=== PATIENT | female | born 1985 | race Caucasian/White ===

== ENCOUNTER 2020-11-16 11:16 | Emergency (ER) | payer OTHER, SELFPAY ==
[2020-11-16 12:55] LABS: BUN/CREAT RATIO (CALC) 24.4 RATIO; CREATININE 0.78 mg/dL (0.51-0.95); EOSINOPHIL 1.6 % (0-5); HCT 43.3 % (37.0-47.0); HGB 13.7 g/dl (12.5-16.0); LYMPHOCYTE 22.6 % (15-48); MCH 29.8 pg (25.0-31.0); MCHC 31.6 g/dL (32.0-36.0); MCV 94.1 fL (78.0-100.0); MONOCYTE 4.5 % (0-12); MPV 9.9 fL (6.0-9.5); NEUTROPHIL 69.9 % (41-80); NRBC 0; PLT 288 K/uL (150-400); POTASSIUM 4.3 mmol/L (3.5-5.1); RDW 12.5 % (11.5-14.0)
[2020-11-16 14:04] LABS: BILIRUBIN NEGATIVE (NEGATIVE); BLOOD NEGATIVE Ery/uL (NEGATIVE); CLARITY CLEAR (CLEAR); COLOR YELLOW (YELLOW); GLUCOSE (U) NORMAL (NORMAL); LEUKOCYTES NEGATIVE Leu/uL (NEGATIVE); NITRITE NEGATIVE (NEGATIVE); PROTEIN NEGATIVE (NEGATIVE); SPECIFIC GRAVITY 1.025 (1.001-1.030); UROBILINOGEN 0.2 mg/dL (0.2-1.0); pH 6.5 (5.0-9.0)
[2020-11-16] MEDS ORDERED: NORCO 5-325 TA1 EACH PO (14:20)
== END 2020-11-16 14:44 | disposition home or self-care (01) ==
LOC: FER 11:16
PROVIDERS: Emergency Medicine
DX: N83.201 Unspecified ovarian cyst, right side (principal); F17.210 Nicotine dependence, cigarettes, uncomplicated; Z88.2 Allergy status to sulfonamides
CPT/HCPCS: 36415; 76830; 80048; 81003; 85025; J1885

== ENCOUNTER 2021-08-06 10:09 | Emergency (ER) | payer OTHER ==
[~2021-08-06 10:09] MED LIST: NORCO 5-325 TA1 EACH PO
[2021-08-06 11:37] LABS: BASOPHIL 0.8 % (0-2); EOSINOPHIL 1.6 % (0-5); HCT 37.2 % (37.0-47.0); HGB 12.1 g/dl (12.5-16.0); LYMPHOCYTE 16.2 % (15-48); MCH 30.1 pg (25.0-31.0); MCHC 32.5 g/dL (32.0-36.0); MCV 92.5 fL (78.0-100.0); MONOCYTE 4.1 % (0-12); NEUTROPHIL 75.6 % (41-80); NRBC 0; PLT 269 K/uL (150-400); RBC 4.02 M/uL (4.20-5.40); RDW 14.1 % (11.5-14.0); WBC 12.6 K/uL (4.0-10.5)
[2021-08-06 11:44] LABS: INR 0.97 (0.9-1.2); PROTHROMBIN TIME 12.3 SECONDS (11.8-13.4); PTT 25.2 SECONDS (24.4-34.7)
[2021-08-06 11:53] LABS: ALBUMIN 2.8 g/dL (3.4-5.0); BILIRUBIN - TOTAL 0.2 mg/dL (0.2-1.0); CREATININE 0.54 mg/dL (0.51-0.95); GLOBULIN (CALCULATION) 3.5 g/dL; MAGNESIUM 1.7 mg/dL (1.8-2.4); POTASSIUM 3.8 mmol/L (3.5-5.1); TOTAL PROTEIN 6.3 g/dL (6.4-8.2)
[2021-08-06 12:14] LABS: BILIRUBIN NEGATIVE (NEGATIVE); BLOOD TRACE-INTACT Ery/uL (NEGATIVE); CLARITY CLEAR (CLEAR); COLOR YELLOW (YELLOW); GLUCOSE (U) NORMAL (NORMAL); LEUKOCYTES TRACE Leu/uL (NEGATIVE); NITRITE NEGATIVE (NEGATIVE); PROTEIN NEGATIVE (NEGATIVE); UROBILINOGEN 0.2 mg/dL (0.2-1.0)
[2021-08-06 12:21] LABS: BACTERIA 1+; URINARY RBC RARE
== END 2021-08-06 14:07 | disposition home or self-care (01) ==
LOC: FER 10:09
PROVIDERS: Emergency Medicine
DX: O99.893 Other specified diseases and conditions complicating puerperium (principal); R00.2 Palpitations; R42 Dizziness and giddiness; O09.523 Supervision of elderly multigravida, third trimester; Z88.2 Allergy status to sulfonamides; Z3A.37 37 weeks gestation of pregnancy
CPT/HCPCS: 36415; 80053; 81001; 83735; 84484; 85025; 85610; 85730; 93005; J7040

== ENCOUNTER 2021-08-16 12:10 | Inpatient (IN) | payer OTHER ==
[~2021-08-16] VITALS: Ht 167.6 cm; Wt 92.1 kg
[2021-08-16 13:02] LABS: HCT 39.2 % (37.0-47.0); MCH 30.5 pg (25.0-31.0); MCHC 33.2 g/dL (32.0-36.0); MPV 10.2 fL (6.0-9.5); RBC 4.26 M/uL (4.20-5.40); RDW 13.9 % (11.5-14.0); WBC 18.6 K/uL (4.0-10.5)
[2021-08-16 13:03] LABS: BILIRUBIN NEGATIVE (NEGATIVE); BLOOD 1+ Ery/uL (NEGATIVE); CLARITY CLEAR (CLEAR); COLOR YELLOW (YELLOW); GLUCOSE (U) NORMAL (NORMAL); LEUKOCYTES NEGATIVE Leu/uL (NEGATIVE); NITRITE NEGATIVE (NEGATIVE); PROTEIN NEGATIVE (NEGATIVE); UROBILINOGEN 0.2 mg/dL (0.2-1.0); pH 6.5 (5.0-9.0)
[2021-08-16 13:11] LABS: MUCOUS TRACE
[2021-08-16 13:28] LABS: ALBUMIN 2.7 g/dL (3.4-5.0); BILIRUBIN - TOTAL 0.3 mg/dL (0.2-1.0); BUN/CREAT RATIO (CALC) 13.1 RATIO; CREATININE 0.61 mg/dL (0.51-0.95); POTASSIUM 3.8 mmol/L (3.5-5.1); TOTAL PROTEIN 6.7 g/dL (6.4-8.2)
[2021-08-17 04:29] LABS: HCT 33.7 % (37.0-47.0); HGB 11.1 g/dl (12.5-16.0); MCH 30.5 pg (25.0-31.0); MCHC 32.9 g/dL (32.0-36.0); MCV 92.6 fL (78.0-100.0); RBC 3.64 M/uL (4.20-5.40); RDW 14.1 % (11.5-14.0); WBC 18.9 K/uL (4.0-10.5)
[2021-08-18] MEDS ORDERED: PRENATAL FORMU1 EACH PO (06:52)
[2021-08-18] MEDS ORDERED: IBUPROFEN800 MG PO (06:52)
== END 2021-08-18 13:10 | disposition home or self-care (01) | DRG 807 ==
LOC: FOD 12:10 → FOB 12:11 → FOD 12:24 → FOB 12:25
PROVIDERS: ADMIT Specialist
PROC: 10D07Z6 Extraction of Products of Conception, Vacuum, Via Natural or Artificial Opening (ICD-10-PCS; principal; 2021-08-16)
PROC: 3E0P7VZ Introduction of Hormone into Female Reproductive, Via Natural or Artificial Opening (ICD-10-PCS; 2021-08-16)
PROC: 0HQ9XZZ Repair Perineum Skin, External Approach (ICD-10-PCS; 2021-08-16)
DX: O76 Abnormality in fetal heart rate and rhythm complicating labor and delivery (principal); Z37.0 Single live birth; Z3A.39 39 weeks gestation of pregnancy; O99.284 Endocrine, nutritional and metabolic diseases complicating childbirth; E03.9 Hypothyroidism, unspecified; O77.0 Labor and delivery complicated by meconium in amniotic fluid; O70.0 First degree perineal laceration during delivery; Z20.822 Contact with and (suspected) exposure to COVID-19
CPT/HCPCS: 36415; 80053; 81001; 86850; 86900; 86901; 90686; J2405; J7120; U0002